=== PATIENT | male | born 2000 | race Caucasian/White ===

== ENCOUNTER 2024-06-13 21:33 | Emergency (ER) | payer BC, OTHER, SELFPAY ==
[2024-06-13 21:41] VITALS: BP 131/96
[2024-06-13 22:24] LABS: % Basophils 0.6 % (0-2); % Eosinophils 1.5 % (0-6); % Immature Granulocytes 0.4 % (0-0.5); % Lymphocytes 28.4 % (20.5-51.1); % Monocytes 7.2 % (1.7-9.3); % Neutrophils 61.9 % (42.2-75.2); Absolute Basophils 0.1 10^3/uL (0-0.2); Absolute Eosinophils 0.1 10^3/uL (0-0.7); Absolute Lymphocytes 2.4 10^3/uL (1.2-3.4); Absolute Monocytes 0.6 10^3/uL (0.1-0.6); Absolute Neutrophils 5.2 10^3/uL (1.4-6.5); Hematocrit 41.5 % (39.0-52.0); Hemoglobin 14.8 g/dL (13.0-18.0); Mean Corp Hgb Conc. 35.7 g/dL (33.0-37.0); Mean Corpuscular Hgb 30.8 pg (27.0-31.0); Mean Corpuscular Volume 86.5 fL (80.0-94.0); Mean Platelet Volume 9.5 fL (7.4-10.4); Nucleated Red Blood Cells % 0 % (-); Platelet Count 267 10^3/uL (130-400); Red Cell Dist. Width 12.1 % (11.5-14.5); White Blood Cell Count 8.4 10^3/uL (4.8-10.8)
[2024-06-13 22:25] LABS: Urine Albumin Trace (Neg - Trace); Urine Bilirubin Negative (Negative); Urine Character Clear (Clear); Urine Color Yellow; Urine Glucose Negative (Negative); Urine Ketone Negative (Negative); Urine Leukocyte Negative (Negative); Urine Nitrite Negative (Negative); Urine Occult Blood Negative (Negative); Urine Urobilinogen 1+ (Neg - 1+)
[2024-06-13 22:40] LABS: ALT (SGPT) 28 U/L (0-50); AST (SGOT) 27 U/L (17-59); Albumin 4.8 g/dl (3.5-5.0); Alkaline Phosphatase 65 U/L (38-126); Blood Urea Nitrogen 20 mg/dl (9-20); Calcium 9.7 mg/dl (8.4-10.2); Carbon Dioxide 27 mmol/L (22-30); Chloride 101 mmol/L (98-107); Glucose 95 mg/dl (70-99); Potassium 4.1 mmol/L (3.5-5.1); Sodium 138 mmol/L (135-145); Total Bilirubin 0.4 mg/dl (0.2-1.3); Total Protein 7.4 g/dl (6.3-8.2); eGFR > 60.00
--- NOTE | 2024-06-13 23:21 | ED.GENMED ---
History of Present Illness
General
Chief Complaint: Anxiety
Time Seen by Provider: 06/13/24 22:35
History of Present Illness
History of Present Illness:
24-year-old male with past medical history of autism and anxiety presenting for increased anxiety tonight. Patient arrives with father and stepmother who note that patient was increasingly aggressive tonight and tearful. They note that patient has
difficulty communicating his symptoms and has chronic issues with 'phantom illnesses '. On arrival to the hospital, patient does note a 'bubble in his chest 'and had told the nurse that he was having left foot pain. Stepmother reports that he
often focuses on physical ailments. Patient is a limited historian given communication issues. When asked about suicidal ideations, does note thoughts in the past without specific plan. No additional history obtained at this time
Past History
Social History
Tobacco: Non-smoker
Phy Exam
Physical Exam
Physical Exam:
General: Well-appearing, no clinical signs of dehydration, nontoxic and in no acute distress
HEENT: protecting airway
Neck: appears supple
CV: Normal heart rate, regular rhythm
Resp: No accessory muscle use, no increased work of breathing, lungs clear to auscultation bilaterally
Abd: No distention
Extremities: No deformities, no swelling. No tenderness to the foot
Neuro: alert, no focal neurologic deficit
: deferred
Rectal: deferred
Psych: Normal affect
Skin: Intact
Course
Orders/Labs/Results
Orders:
Orders
06/13/24 22:16
Complete Blood Count/With Diff Urgent
Comprehensive Metabolic Panel Urgent
Urinalysis Reflex To Culture Urgent
Date Specimen was Collected: 06/13/24
Time Specimen was Collected: 22:00
06/13/24 22:48
Crisis Consult Urgent
Reason for Consult: anxiety, autistic, request
06/13/24 23:12
Electrocardiogram (*1) Stat
Reason for Study: Chest Pain
Electrocardiogram (*1) Urgent
EKG- Treatment ONCE
Lorazepam [Ativan] 1 mg PO NOW STA
06/13/24 22:16
06/13/24 22:16
Vital Signs
Initial and Last Documented VS:
Initial Vital Signs
Temp Pulse Resp BP Pulse Ox
98.7 F 113 20 131/96 100
06/13/24 21:41 06/13/24 21:41 06/13/24 21:41 06/13/24 21:41 06/13/24 21:41
Last Documented Vital Signs
Temp Pulse Resp BP Pulse Ox
98.7 F 113 20 131/96 98
06/13/24 21:41 06/13/24 21:41 06/13/24 21:41 06/13/24 21:41 06/13/24 21:41
MDM/Problems Addressed
MDM/Problems Addressed:
24-year-old male with history of anxiety and autism presenting for increased anxiety. Vital signs on arrival are significant for tachycardia, however patient is slightly anxious on arrival.
On exam, patient is resting comfortably, no acute distress with unremarkable cardiac and pulmonary exam. Patient is a difficult historian. He notes some bubbling in his chest. Will screen with EKG, however lower suspicion for acute medical
pathology or etiology to presenting symptoms. Ultimately suspect underlying anxiety. Patient did not take any medications prior to arrival. He is requesting medication here, will administer Ativan. Father is requesting crisis evaluation. Will
obtain.
23:45 -EKG within normal limits. On reassessment patient remains stable and calm. Patient seen by crisis, deemed appropriate for continued outpatient follow-up. Patient sees a therapist once a week and a psychiatrist once every 2 weeks, has good
outpatient social support. Feel stable for discharge. Return precautions discussed and patient verbalized understanding
*EKG
Interpreted by ED Provider?: Yes
EKG Intrepretation Date: 06/13/24
EKG Intrepretation Time: 23:48
Interpretation: normal
Heart Rate: 88
Rate: normal
Rhythm: sinus
[place]: normal axis
Interval: normal interval
QRS Pattern: normal QRS
Ischemia: no ischemia
*Critical Care Note
Total Time (30-74mins, 75-104mins- exclusive of procedures): Not Applicable
ED Attending Note
-
Portions of this chart may have been created with voice recognition software.� Occasional wrong word or��sound alike� substitutions may have occurred due to the inherent limitations of voice recognition software.
Discharge Plan
Departure
Patient Disposition: Home (Routine Discharge)
Date of Disposition: 06/13/24
Time of Disposition: 23:50
Patient with high blood pressure during this ER visit?: No
Condition: Good
Discharge Problem:
Anxiety
Instructions: Anxiety, Adult (DC)
Prescriptions:
No Action
dexmethylphenidate 10 mg Tablet
10 mg PO DAILY
Rx Instructions:
at 1600
sertraline 25 mg Tablet
25 mg PO HS
Rx Instructions:
at night
risperidone 0.5 mg Tablet
0.5 mg PO HS
Azstarys 39.2 mg- 7.8 mg Capsule
1 tab PO DAILY
melatonin 10 mg Tablet,Chewable
12 mg PO HS
Activity Restrictions/Additional Instructions:
You were seen in the emergency department for your anxiety
You were found to have a normal EKG and vital signs as well as normal lab work. You were seen by the crisis team, recommending continued outpatient follow-up with your therapist and your psychiatrist.
Please follow-up closely with your primary care physician.
Return to the emergency department for any worsening of your symptoms, particularly any thoughts of wanting to hurt yourself or others, or any development of chest pain, difficulty breathing, abdominal pain with persistent vomiting and inability to
tolerate food or liquid by mouth (concern for dehydration), weakness, headache or confusion, fever greater than 100.4, or any additional symptoms that are concerning to you.
Thank you for choosing [facility].
Interventions
Interventions:
*Risk Screen - Suicide Last Done: 06/13/24 21:41
*General Assessment Last Done: 06/13/24 21:41
*Neglect/Abuse Screening Last Done: 06/13/24 21:41
ED- Fall Risk Assessment Last Done: 06/13/24 21:41
*ED COVID-19 Vaccine History Last Done: 06/13/24 21:41
ED-Psychological Assessment Last Done: 06/13/24 22:31
Discharge Date and Time
Print Language: JAPANESE
[2024-06-13] MEDS: ATIVAN 1 MG PO (23:34)
[2024-06-14 00:05] VITALS: BP 115/70
== END 2024-06-14 00:05 | disposition home or self-care (01) ==
LOC: EMR 21:33
PROVIDERS: Emergency Medicine; EMERGENCY PHYSICIAN Student in an Organized Health Care Education/Training Program
DX: F41.9 Anxiety disorder, unspecified (principal); F84.0 Autistic disorder
CPT/HCPCS: 99284; 80053; 81003; 85025; 93005